=== PATIENT | female | born 1995 | race Caucasian/White ===

== ENCOUNTER 2017-01-28 17:33 | Emergency (ER) | payer SELFPAY ==
[~2017-01-28] VITALS: Ht 160 cm; Wt 56.5 kg
[~2017-01-28 17:33] MED LIST: BACT800T5 PO
[2017-01-28 17:34] VITALS: BP 126/74; PULSE 84; RESP 18; TEMP 98.1; O2SAT 98
--- NOTE | 2017-01-28 18:16 | PD ---
HPI Chief Complaint: Abdominal Pain Time Seen by Provider: 18:13 Travel History International Travel<30 days: No Contact w/Intl Traveler<30days: No Traveled to known affect area: No History of Present Illness HPI Patient is a 21-year-old female presenting to emergency for evaluation of lower abdominal pressure. Patient states that cramping pressure started today, she currently has her menstrual cycle states that she normally doesn't get cramping in her stomach but get that in her back so she figured it was her IUD causing trouble and came to emergency department to be evaluated. Patient has had no fevers, chills, dysuria, headaches, nausea, chest pain or shortness of breath. She has no significant past medical history. [facility] Past Medical History Medical History: Denies Significant Hx Tetanus Vaccination: > 5 Years Influenza Vaccination: No ?: Not LMP: 01/2017 Past Surgical History Section: Yes Social History Alcohol Use: Yes (occ) Tobacco Use: Yes Substance Use: Yes (occ marijuana) Allergies-Medications (Allergen,Severity, Reaction): Coded Allergies: No Known Allergies (Unverified , 01/28/17) Reported Meds & Prescriptions Reported Meds & Active Scripts Active Review of Systems Except as stated in HPI: all other systems reviewed are Neg Gastrointestinal: Positive: Abdominal Pain (cramping) Physical Exam Narrative GENERAL: Well-nourished, well-developed patient. SKIN: Focused skin assessment warm/dry. HEAD: Normocephalic. EYES: No scleral icterus. No injection or drainage. NECK: Supple, trachea midline. No JVD or lymphadenopathy. CARDIOVASCULAR: Regular rate and rhythm without murmurs, gallops, or rubs. RESPIRATORY: Breath sounds equal bilaterally. No accessory muscle use. GASTROINTESTINAL: Abdomen soft, non-tender, nondistended. Positive bowel sounds , no rebound, no guarding MUSCULOSKELETAL: No cyanosis, or edema. BACK: Nontender without obvious deformity. No CVA tenderness. Data Data Last Documented VS Vital Signs Date Time Temp Pulse Resp B/P Pulse Ox O2 Delivery O2 Flow Rate FiO2 01/28/17 19:22 58 20 115/56 100 Room Air 01/28/17 17:34 98.1 Orders Urinalysis - C+S If Indicated (01/28/17 18:02) Labs Laboratory Tests Test 01/28/17 18:22 Urine Color YELLOW Urine Turbidity HAZY Urine pH 7.0 Urine Specific [place] 1.024 Urine Protein TRACE mg/dL Urine Glucose (UA) NEG mg/dL Urine Ketones NEG mg/dL Urine Occult Blood MOD Urine Nitrite NEG Urine Bilirubin NEG Urine Urobilinogen LESS THAN 2.0 MG/DL Urine Leukocyte Esterase NEG Urine RBC LESS THAN 1 /hpf Urine WBC LESS THAN 1 /hpf Urine Squamous Epithelial <1 /hpf Cells Urine Amorphous Sediment RARE Urine Mucus FEW /lpf Microscopic Urinalysis Comment CULT NOT INDICATED MDM Medical Decision Making Medical Screen Exam Complete: Yes Emergency Medical Condition: Yes Interpretation(s) Vital Signs Date Time Temp Pulse Resp B/P Pulse Ox O2 Delivery O2 Flow Rate FiO2 01/28/17 17:34 98.1 84 18 126/74 98 Differential Diagnosis Constipation versus UTI versus menstrual cramps versus other Narrative Course Patient is a 21-year-old female presented to emergency room evaluation of abdominal cramping. She currently has her menstrual cycle. Check UA and KUB. Patient refused KUB, urinalysis unremarkable. Patient was advised that she will need a follow-up with a radio news anchor for evaluation of her IUD. Normal exam is benign, patient is likely experiencing menstrual cramps that she does have her menstrual cycle currently. Vital signs are stable, she is in no acute distress. She was encouraged to return to emergency department for any new or worsening symptoms. Patient verbalized understanding of instructions. Patient is stable for discharge. Diagnosis Primary Impression: Menstrual cramps Referrals: [facility] Historical Archeologist Patient Instructions: General Instructions, Menstruation (ED) Additional Instructions: Follow-up with a radio news anchor or at the [facility] Take ibuprofen as needed and as directed for pain Return to the emergency department for any new or worsening symptoms Med/Other Pt SpecificInfo: Prescription(s) given Scripts Ibuprofen 800 Mg Qjo262 Mg PO Q6HR PRN (PAIN) #40 TAB Ref 0 Prov:Cierra Foote 01/28/17 Disposition: 01 DISCHARGE HOME Condition: Stable Cierra Foote Jan 28, 2017 18:16
[2017-01-28 18:58] LABS: BLOOD, URINE MOD (NEG); COMMENT (UR) CULT NOT INDICATED; CULTURE IF INDICATED CULT NOT INDICATED; GLUCOSE,URINE NEG (NEG); KETONE, URINE NEG (NEG); MUCUS URINE FEW /lpf (OCC); NITRITE,URINE NEG (NEG); SQUAMOUS EPITHELIAL CELL URINE <1 /hpf (0-5); URINE COLOR YELLOW (YELLW/STRAW)
[2017-01-28 19:22] VITALS: BP 115/56; PULSE 58; RESP 20; O2SAT 100
[2017-01-28] MEDS ORDERED: IBUP800T23 PO (19:25)
== END 2017-01-28 19:48 | disposition home or self-care (01) ==
LOC: NEPD 17:33
DX: N94.6 Dysmenorrhea, unspecified (principal)
CPT/HCPCS: 81001; 99284